=== PATIENT | female | born 1995 | race American Indian/Alaskan Native ===

== ENCOUNTER 2022-05-03 19:29 | Emergency (ER) | payer MEDICAID | END 2022-05-03 21:37 | disposition home or self-care (01) | LOC: DL.ED 19:29 | DX: S51.812D Laceration without foreign body of left forearm, subsequent encounter (principal) | CPT/HCPCS: 12001; 99281; 99282 ==

== ENCOUNTER 2022-06-07 19:49 | Emergency (ER) | payer MEDICAID ==
[2022-06-07 20:35] LABS: ANION GAP 14.7 mEq/L (7-13); CHLORIDE,CL 108 mmol/L (98-107); ESTIMATED GFR 111 mL/min (>=60); SODIUM,NA 142 mmol/L (136-145)
== END 2022-06-07 20:44 | disposition left against medical advice (07) ==
LOC: DL.ED 19:49
DX: R10.12 Left upper quadrant pain (principal); Z88.0 Allergy status to penicillin; Z53.29 Procedure and treatment not carried out because of patient's decision for other reasons
CPT/HCPCS: 36415; 80053; 80307; 84703; 85025; 99282; 99284

== ENCOUNTER 2023-07-26 09:24 | Emergency (ER) | payer MEDICAID ==
[2023-07-26] MEDS ORDERED: Albuterol/Ipratropium 3.0-0.5 MG/3 ML Neb Soln NEB ONE (09:32)
[2023-07-26] MEDS ORDERED: guaiFENesin 100 MG/5 ML Soln 5 ML UD Cup PO ONE (09:33)
[2023-07-26 10:19] LABS: CORONAVIRUS COVID-19 NAA NEGATIVE (NEGATIVE); INFLUENZA A NAA NEGATIVE (NEGATIVE); INFLUENZA B NAA NEGATIVE (NEGATIVE); RESPIRATORY SYNCYTIAL VIR NAA NEGATIVE (NEGATIVE)
== END 2023-07-26 10:56 | disposition home or self-care (01) ==
LOC: DL.ED 09:24
DX: J06.9 Acute upper respiratory infection, unspecified (principal); R05.9 Cough, unspecified; Z88.0 Allergy status to penicillin; Z20.822 Contact with and (suspected) exposure to COVID-19; F17.200 Nicotine dependence, unspecified, uncomplicated
CPT/HCPCS: 0241U; 71046; 87081; 87430; 94640; 99283; 99284; A9270-GY; J7620-GY

== ENCOUNTER 2023-12-15 14:40 | Emergency (ER) | payer MEDICAID | END 2023-12-15 17:05 | disposition home or self-care (01) | LOC: DL.ED 14:40 | DX: S06.0X1A Concussion with loss of consciousness of 30 minutes or less, initial encounter (principal); S05.12XA Contusion of eyeball and orbital tissues, left eye, initial encounter; S40.029A Contusion of unspecified upper arm, initial encounter; Z90.49 Acquired absence of other specified parts of digestive tract; Y04.0XXA Assault by unarmed brawl or fight, initial encounter | CPT/HCPCS: 70450; 70486; 72125; 99283; 99284 ==

== ENCOUNTER 2024-10-10 17:17 | Emergency (ER) | payer MEDICAID | END 2024-10-10 18:34 | disposition home or self-care (01) | LOC: DL.ED 17:17 | DX: J06.9 Acute upper respiratory infection, unspecified (principal); Z88.0 Allergy status to penicillin; Z90.49 Acquired absence of other specified parts of digestive tract | CPT/HCPCS: 87081; 87428-QW; 87430; 99283 ==